=== PATIENT | female | born 1955 | race Caucasian/White ===

== ENCOUNTER → 2022-01-22 | Day surgery (SDC) | payer MEDICARE ==
[~2022-01-22] MED LIST: ASPIRIN CHEW81 MG PO; ATORVASTATIN CA20 MG PO; BANOPHEN50 MG; BYDUREON B2 MG/0.85 INJ; ERGOCALCIFEROL1 GM; FENTANYL CITRATE/PF 100MCG/2 ML INJ ONE; GLIMEPIRIDE2 MG PO; IRON; JANUVIA100 MG PO; LANTUS 3ML100 UNITS/; LISINOPRIL10 MG PO; LOKELMA5 GM PO; METHOCARBAMOL750 MG PO; MIDAZOLAM HCL 2 MG/2 ML VIAL ONE; MIRTAZAPINE15 MG PO; NEURONTIN400 MG PO; OR PHACO EYE KIT ONE; PREOP PHACO EYE KIT ONE; TRAZODONE HCL100 MG PO; TRICOR145 MG PO; VICODIN HP 10-1 EAC1 PO
[2022-01-22 12:13] VITALS: BP 132/64
== END | disposition home or self-care (01) ==
LOC: OR 08:25
PROVIDERS: ATTEND Ophthalmology
DX: H25.11 Age-related nuclear cataract, right eye (principal); D64.9 Anemia, unspecified; E11.22 Type 2 diabetes mellitus with diabetic chronic kidney disease; N18.9 Chronic kidney disease, unspecified; E78.5 Hyperlipidemia, unspecified; M19.90 Unspecified osteoarthritis, unspecified site; Z79.4 Long term (current) use of insulin; Z79.82 Long term (current) use of aspirin; Z79.899 Other long term (current) drug therapy; Z87.891 Personal history of nicotine dependence
CPT/HCPCS: 36415; 66984; 82948; J2250; J3010; V2632

== ENCOUNTER → 2022-02-05 | Day surgery (SDC) | payer MEDICARE ==
[2022-02-05 13:00] VITALS: BP 115/59
== END | disposition home or self-care (01) ==
LOC: OR 08:52
PROVIDERS: ATTEND Ophthalmology
DX: H25.11 Age-related nuclear cataract, right eye (principal); E11.22 Type 2 diabetes mellitus with diabetic chronic kidney disease; I12.9 Hypertensive chronic kidney disease with stage 1 through stage 4 chronic kidney disease, or unspecified chronic kidney disease; N18.9 Chronic kidney disease, unspecified; G62.9 Polyneuropathy, unspecified; E78.5 Hyperlipidemia, unspecified; Z79.82 Long term (current) use of aspirin; Z79.4 Long term (current) use of insulin; Z79.899 Other long term (current) drug therapy; Z87.891 Personal history of nicotine dependence
CPT/HCPCS: 36415; 66984; 82948; J2250; J3010; V2632